=== PATIENT | male | born 1975 | race African-American/Black ===

== ENCOUNTER 2017-10-10 22:06 | Observation (INO) | payer SELFPAY ==
[~2017-10-10] VITALS: Ht 167.6 cm; Wt 100.0 kg
[~2017-10-10 22:06] MED LIST: AMLO5 PO
[2017-10-10 22:09] VITALS: BP 165/105; PULSE 75; RESP 16; TEMP 98.7; O2SAT 98
[2017-10-10 22:35] VITALS: O2SAT 100
[2017-10-10 22:43] LABS: AUTOMATED NEUTROPHIL # 2.7 TH/MM3 (1.8-7.7); BASOPHIL % 0.7 % (0.0-2.0); EOSINOPHIL % 0.7 % (0.0-4.0); HEMATOCRIT 39.5 % (39.0-51.0); HEMO FLAGS DIFF FINAL; LYMPH % 43.9 % (9.0-44.0); LYMPHOCYTE # 2.6 TH/MM3 (1.0-4.8); MEAN CELL VOLUME 85.2 FL (80.0-100.0); MEAN CORPUSCULAR HEMOGLOBIN 29.6 PG (27.0-34.0); MEAN CORPUSCULAR HGB CONC 34.8 % (32.0-36.0); MONO % 7.8 % (0.0-8.0); NEUT % 46.9 % (16.0-70.0); PLATELET COUNT 180 TH/MM3 (150-450); RED BLOOD COUNT 4.64 MIL/MM3 (4.50-5.90); RED CELL DISTRIBUTION WIDTH 12.6 % (11.6-17.2); WHITE BLOOD COUNT 5.8 TH/MM3 (4.0-11.0)
[2017-10-10 22:45] VITALS: BP 178/90
--- NOTE | 2017-10-10 22:56 | RADRPT ---
EXAM DATE/TIME: 10/10/2017 22:52 [facility] COMPARISON: CHEST SINGLE AP, May 23, 2016, 13:40. INDICATIONS : Left sided chest pain. MEDICAL HISTORY : None. SURGICAL HISTORY : None. ENCOUNTER: Initial ACUITY: 4 - 6 days PAIN SCORE: 8/10 LOCATION: Left chest FINDINGS: A single view of the chest demonstrates the lungs to be symmetrically aerated without evidence of mas s, infiltrate or effusion. No evidence of pneumothorax. The cardiomediastinal contours are unremark able. Osseous structures are intact. CONCLUSION: The lungs are clear. Galindo Wyatt MD on October 10, 2017 at 22:54 Board Certified Radiologist. This report was verified electronically.
[2017-10-10 23:22] LABS: ANION GAP 6 MEQ/L (5-15); BICARBONATE 26.9 MEQ/L (21.0-32.0); BLOOD UREA NITROGEN 13 MG/DL (7-18); CHLORIDE 105 MEQ/L (98-107); CREATINE KINASE 1155 U/L (39-308); GLOMERULAR FILTRATION RATE 75 ML/MIN (>89); SODIUM (NA) 138 MEQ/L (136-145)
[2017-10-10 23:23] LABS: POTASSIUM 3.9 MEQ/L (3.5-5.1)
[2017-10-10 23:35] LABS: CKMB 3.5 NG/ML (0.5-3.6)
[2017-10-10] MEDS ORDERED: SODIUM CHLOR 0.9% 1000 ML INJ 1,000 ML IV ONE (23:45)
--- NOTE | 2017-10-10 23:50 | PD ---
HPI Chief Complaint: Chest Pain Time Seen by Provider: 22:45 Travel History International Travel<30 days: No Contact w/Intl Traveler<30days: No Traveled to known affect area: No History of Present Illness HPI This is a 41-year-old male with no past medical history, presents today with complaints of intermittent chest pain times several days. Patient reports he has pain in his left shoulder and left upper chest that radiates to his left arm. He reports the sharp and intermittent. He also reports some pressure- like sensation. There is no nausea or diaphoresis. Patient had elevated blood pressure when he arrived. The patient has no history of blood pressure although he doesn't a family history of blood pressure issues. There are no other complaints time my examination. PFSH Past Medical History Medical History: Denies Significant Hx Heart Rhythm Problems: No Cardiac Catheterization: No Cardiovascular Problems: No High Cholesterol: No Congestive Heart Failure: No Diabetes: No Heparin Induced Thrombocytopen: No Hypertension: No Past Surgical History Surgical History: No Previous Surgery Coronary Artery Bypass Graft: No Family History Family Myocardial Infarction: Yes (father) Social History Alcohol Use: Yes Tobacco Use: No Substance Use: No Allergies-Medications (Allergen,Severity, Reaction): Coded Allergies: No Known Allergies (Verified Adverse Reaction, Unknown, 10/10/17) Reported Meds & Prescriptions Reported Meds & Active Scripts Active No Active Prescriptions or Reported Medications Review of Systems Except as stated in HPI: all other systems reviewed are Neg General / Constitutional: No: Fever, Chills HENT: No: Neck Stiffness, Neck Pain Cardiovascular: Positive: Chest Pain or Discomfort, No: Palpitations, Irregular Rhythm Respiratory: No: Cough, Shortness of Breath Gastrointestinal: No: Nausea, Vomiting, Abdominal Pain Genitourinary: No: Frequency, Dysuria Musculoskeletal: Positive: Pain (sharp pain intermittently to the left arm.), No: Weakness Neurologic: No: Weakness, Dizziness, Headache Physical Exam Narrative GENERAL: Well-nourished, well-developed patient in no acute respiratory distress. SKIN: Focused skin assessment warm/dry. HEAD: Normocephalic/atraumatic. EYES: No scleral icterus. No injection or drainage. NECK: Supple, trachea midline. No JVD or lymphadenopathy. CARDIOVASCULAR: Regular rate and rhythm without murmurs, gallops, or rubs. RESPIRATORY: Breath sounds equal bilaterally. No accessory muscle use. GASTROINTESTINAL: Abdomen soft, non-tender, nondistended. MUSCULOSKELETAL: No cyanosis, or edema. BACK: Nontender without obvious deformity. No CVA tenderness. NEUROLOGICAL: Awake and alert. Cranial nerves II through XII intact. Motor grossly within normal limits. Five out of 5 muscle strength in all muscle groups. Normal speech. Data Data Last Documented VS Vital Signs Date Time Temp Pulse Resp B/P (MAP) Pulse Ox O2 Delivery O2 Flow Rate FiO2 10/11/17 00:37 76 18 149/88 (108) 100 10/10/17 22:35 Nasal Cannula 2.00 10/10/17 22:09 98.7 Orders Orders Electrocardiogram (10/10/17 22:33) Complete Blood Count With Diff (10/10/17 22:33) Basic Metabolic Panel (Bmp) (10/10/17 22:33) Ckmb (Isoenzyme) Profile (10/10/17 22:33) Troponin I (10/10/17 22:33) Chest, Single Ap (10/10/17 22:33) Iv Access Insert/Monitor (10/10/17 22:33) Ecg Monitoring (10/10/17 22:33) Oxygen Administration (10/10/17 22:33) Oximetry (10/10/17 22:33) CKMB (10/10/17 22:36) CKMB% (10/10/17 22:36) Sodium Chlor 0.9% 1000 Ml Inj (Ns 1000 M (10/10/17 23:45) Aspirin Chew (Aspirin Chew) (10/11/17 00:00) Nitroglycerin 2% Oint (Nitroglycerin 2% (10/11/17 00:00) Activity Bed Rest With Brp (10/11/17 00:34) Vital Signs (Adult) Q4H (10/11/17 00:34) Cardiac Rhythm .As Directed (10/11/17 00:34) Notify Dr: Other .PRN (10/11/17 00:34) Notify Parameters (10/11/17 00:34) Resp Oxygen Nasal Cannula (10/11/17 ) Diet Npo (10/11/17 Breakfast) Ckmb (Isoenzyme) Profile (10/11/17 01:30) Ckmb (Isoenzyme) Profile (10/11/17 04:30) Troponin I (10/11/17 01:30) Troponin I (10/11/17 04:30) Electrocardiogram (10/11/17 01:30) Electrocardiogram (10/11/17 04:30) ^ Obtain (10/11/17 00:34) Sodium Chloride 0.9% Flush (Ns Flush) (10/11/17 00:45) Sodium Chloride 0.9% Flush (Ns Flush) (10/11/17 09:00) Film Composer / Telemetry [id number] (10/11/17 00:34) Admit Order (Ed Use Only) (10/11/17 00:34) Sodium Chlor 0.9% 1000 Ml Inj (Ns 1000 M (10/11/17 00:45) Amlodipine (Norvasc) (10/11/17 00:45) Labs Laboratory Tests Test 10/10/17 22:36 White Blood Count 5.8 TH/MM3 Red Blood Count 4.64 MIL/MM3 Hemoglobin 13.8 GM/DL Hematocrit 39.5 % Mean Corpuscular Volume 85.2 FL Mean Corpuscular Hemoglobin 29.6 PG Mean Corpuscular Hemoglobin Concent 34.8 % Red Cell Distribution Width 12.6 % Platelet Count 180 TH/MM3 Mean Platelet Volume 8.6 FL Neutrophils (%) (Auto) 46.9 % Lymphocytes (%) (Auto) 43.9 % Monocytes (%) (Auto) 7.8 % Eosinophils (%) (Auto) 0.7 % Basophils (%) (Auto) 0.7 % Neutrophils # (Auto) 2.7 TH/MM3 Lymphocytes # (Auto) 2.6 TH/MM3 Monocytes # (Auto) 0.5 TH/MM3 Eosinophils # (Auto) 0.0 TH/MM3 Basophils # (Auto) 0.0 TH/MM3 CBC Comment DIFF FINAL Differential Comment Blood Urea Nitrogen 13 MG/DL Creatinine 1.27 MG/DL Random Glucose 129 MG/DL Calcium Level 8.4 MG/DL Sodium Level 138 MEQ/L Potassium Level 3.9 MEQ/L Chloride Level 105 MEQ/L Carbon Dioxide Level 26.9 MEQ/L Anion Gap 6 MEQ/L Estimat Glomerular Filtration Rate 75 ML/MIN Total Creatine Kinase 1155 U/L Creatine Kinase MB 3.5 NG/ML Creatine Kinase MB % 0.3 % Troponin I LESS THAN 0.02 NG/ML MDM Medical Decision Making Medical Screen Exam Complete: Yes Emergency Medical Condition: Yes Differential Diagnosis ACS versus osseous skeletal pain versus pleurisy Narrative Course 41-year-old male with no reported past microscopic history, presents here today with complaints of chest pain on and off. The patient has a EKG that shows no evidence of acute findings. Troponin was within normal limits. Total CK was elevated at 1100. The patient was given 1 L of IV bolus and started at 125 cc of normal saline per hour. He'll be admitted to the chest pain center for rule out protocol. He's had 1 inch of nitroglycerin paste placed on his anterior chest wall. He'll be ruled out. Looking through old records he was seen and evaluated and chest pain center 15 months ago. At that time they noted him to have elevated blood pressure. There were to start him on amlodipine. I started him on 5 mg of amlodipine and he was given his first dose here in the ED. Diagnosis Primary Impression: Chest pain Additional Impressions: Hypertension Elevated CPK Admitting Information Admitting Physician Requests: Observation Scripts No Active Prescriptions or Reported Meds Juanjose Goel MD Oct 10, 2017 23:50
[2017-10-11] VITALS (13 sets, daily range): BP systolic 116–166; BP diastolic 65–99; PULSE 67–100; RESP 14–18; TEMP 96.3–97.8; O2SAT 97–100
[2017-10-11] MEDS ORDERED: ASPIRIN 81 MG CHEW TAB CHEW ONE
[2017-10-11] MEDS ORDERED: NITROGLYCERIN 2% OINT 1 GM PACKET TOPICAL ONE
[2017-10-11] MEDS ORDERED: IOHEXOL 350 MG/ML 100 ML BTL (for Cath Lab) OTHER ONE (00:41)
[2017-10-11] MEDS ORDERED: SODIUM CHLORIDE 0.9% FLUSH 10 ML FLUSH IV FLUSH PRN (00:45)
[2017-10-11] MEDS ORDERED: amLODIPine BESYLATE 5 MG TAB PO ONE (00:45)
[2017-10-11] MEDS: SODIUM CHLOR 0.9% 1000 ML INJ 1,000 ML IV SCH ×3 (01:12→16:45)
[2017-10-11 03:26] LABS: CREATINE KINASE 826 U/L (39-308)
[2017-10-11 03:38] LABS: CKMB 2.8 NG/ML (0.5-3.6)
[2017-10-11 05:39] LABS: CREATINE KINASE 798 U/L (39-308)
[2017-10-11 05:51] LABS: CKMB 2.5 NG/ML (0.5-3.6)
[2017-10-11] MEDS ORDERED: ONDANSETRON HCL 4 MG/2 ML VIAL IV PUSH PRN (07:30)
[2017-10-11] MEDS ORDERED: NITROGLYCERIN 0.4 MG SL 25 TABS/BTL SL PRN (07:30)
[2017-10-11] MEDS ORDERED: ACETAMINOPHEN 500 MG CPLT PO PRN (07:30)
--- NOTE | 2017-10-11 08:13 | HHI.HP ---
HPI Primary Care Physician No Primary Care Physician Chief Complaint Chest pain History of Present Illness 41 year old male with no significant past medical history presents to the ER for further evaluation of chest pain. Onset while at work. Location left anterior chest. Characterized as sharp. Radiation to left arm. Duration constant, intermittently chest pain occurring more often than not. Associated symptoms of diaphoresis and dyspnea. Denies nausea. No recent illness, fever, or chills. No known precipitating factors, stating "maybe from my work, getting in and out of cars and the chemicals." He works detailing cars. No known relieving factors. Denies similar pain in the past. Review of Systems General: No fatigue,weakness, fever, chills, or recent illness change in appetite. Has been adjusted health. HEENT: No PICHARDO, no vision changes, no nasal congestion or drainage, no dysphasia CV: As stated above. Currently chest pain-free. No palpitations, intermittent leg pain, dizziness RESP: No SOB, cough, wheeze, hemoptysis, asthma GI: No nausea, vomiting, bowel changes, diarrhea, constipation, pain, distention , melena, blood in the stool. No change in appetite, no unintentional weight gain or weight loss. : No dysuria, urgency, frequency EXT: No lower leg edema, no paraesthesias MS: No discomfort, change in ROM, injury, or known trauma. NEURO: No dizziness, difficulty with balance, LOC, motor/sensory deficits PSYCH: No anxiety, depression SKIN: No rashes, no concerning lesions Past Family Social History Allergies: Coded Allergies: No Known Allergies (Verified Adverse Reaction, Unknown, 10/10/17) Past Medical History None Past Surgical History None Reported Medications Reported Meds & Active Scripts Active No Active Prescriptions or Reported Medications Active Ordered Medications Current Medications Medications (Trade) Dose Ordered Sig/Sukhwinder Route Start Time Stop Time Status Last Admin (NS Flush) 2 ml UNSCH PRN IV FLUSH 10/11/17 00:45 (NS Flush) 2 ml BID IV FLUSH 10/11/17 09:00 Sodium Chloride 1,000 ml @ 125 mls/hr Q8H IV 10/11/17 00:45 10/11/17 01:12 (Tylenol) 500 mg Q4H PRN PO 10/11/17 07:30 (Zofran Inj) 4 mg Q6H PRN IV PUSH 10/11/17 07:30 (Nitrostat Sl) 0.4 mg Q5M PRN SL 10/11/17 07:30 (Aspirin) 325 mg DAILY PO 10/11/17 09:00 Family History Father age 53 ID, endorses cardiac problems prior to as well. Social History Reports history of being told he has hypertension, placed on medication however endorses never following up with a PCP. No known diabetes or hyperlipidemia. Lifelong nonsmoker. Past cardiac testing 05/24/2016 Nuclear stress [id number], Global hypokineses. EF 40% Physical Exam Vital Signs Vital Signs Date Time Temp Pulse Resp B/P (MAP) Pulse Ox O2 Delivery O2 Flow Rate FiO2 10/11/17 07:23 97.4 67 18 121/65 (83) 97 10/11/17 04:39 97.7 74 17 132/82 (99) 97 10/11/17 03:45 75 10/11/17 02:02 67 16 141/85 (103) 98 10/11/17 00:54 98 10/11/17 00:37 76 18 149/88 (108) 100 10/10/17 22:45 178/90 (119) 10/10/17 22:35 100 Nasal Cannula 2.00 10/10/17 22:35 97 Room Air 10/10/17 22:09 98.7 75 16 165/105 (125) 98 Room Air Physical Exam GENERAL: Alert WN, WD, NAD, pleasant, obese male HEAD: NC, AT NECK: Supple, no masses, trachea midline CV: RRR, without murmur, rub, gallop, no JVD, S1-S2 no S3-S4. RESP: Clear lungs throughout bilateral, no crackles, wheeze, rhonchi, symmetrical chest rise, nonlabored, able to speak in full sentences ABD: Soft, NT, ND, no masses, positive bowel tones EXT: no dependent edema MS: Normal tone 4 extremities, nontender, no obvious deformities, full range of motion NEURO: CN II through CN XII grossly intact, motor strength 5/5, gait WNL PSYCH: A+O 3, flat affect, appropriate speech, insight and judgment SKIN: Normal turgor, normal texture, no lesions, no rashes, brisk cap refill, even hair distribution Laboratory Laboratory Tests Test 10/10/17 22:36 10/11/17 02:30 10/11/17 04:33 White Blood Count 5.8 Red Blood Count 4.64 Hemoglobin 13.8 Hematocrit 39.5 Mean Corpuscular Volume 85.2 Mean Corpuscular Hemoglobin 29.6 Mean Corpuscular Hemoglobin Concent 34.8 Red Cell Distribution Width 12.6 Platelet Count 180 Mean Platelet Volume 8.6 Neutrophils (%) (Auto) 46.9 Lymphocytes (%) (Auto) 43.9 Monocytes (%) (Auto) 7.8 Eosinophils (%) (Auto) 0.7 Basophils (%) (Auto) 0.7 Neutrophils # (Auto) 2.7 Lymphocytes # (Auto) 2.6 Monocytes # (Auto) 0.5 Eosinophils # (Auto) 0.0 Basophils # (Auto) 0.0 CBC Comment DIFF FINAL Differential Comment Blood Urea Nitrogen 13 Creatinine 1.27 Random Glucose 129 Calcium Level 8.4 Sodium Level 138 Potassium Level 3.9 Chloride Level 105 Carbon Dioxide Level 26.9 Anion Gap 6 Estimat Glomerular Filtration Rate 75 Total Creatine Kinase 1155 826 798 Creatine Kinase MB 3.5 2.8 2.5 Creatine Kinase MB % 0.3 0.3 0.3 Troponin I LESS THAN 0.02 LESS THAN 0.02 LESS THAN 0.02 Result Diagram: 10/10/17223510/10/172235 Imaging Last Impressions Chest X-Ray 10/10/172232 Signed Impressions: Service Date/Time: Tuesday, October 10, 2017 22:52 - CONCLUSION: The lungs are clear. Galindo Wyatt MD Course EKG Normal sinus rhythm, nonspecific T-wave changes Caprini VTE Risk Assessment Caprini VTE Risk Assessment: No/Low Risk (score <= 1) Caprini Risk Assessment Model Point Value = 1 Point Value = 2 Point Value = 3 Point Value = 5 Age 41-60 Minor surgery BMI > 25 kg/m2 Swollen legs Varicose veins or History of unexplained or recurrent spontaneous Oral contraceptives or hormone replacement Sepsis (< 1 month) Serious lung disease, including pneumonia (< 1 month) Abnormal pulmonary function Acute myocardial infarction Congestive heart failure (< 1 month) History of inflammatory bowel disease Medical patient at bed rest Age 61-74 Arthroscopic surgery Major open surgery (> 45 min) Laparoscopic surgery (> 45 min) Malignancy Confined to bed (> 72 hours) Immobilizing plaster cast Central venous access Age >= 75 History of VTE Family history of VTE Factor V Leiden Prothrombin [id number] Lupus anticoagulant Anticardiolipin antibodies Elevated serum homocysteine Heparin-induced thrombocytopenia Other congenital or acquired thrombophilia Stroke (< 1 month) Elective arthroplasty Hip, pelvis, or leg fracture Acute spinal cord injury (< 1 month) Prophylaxis Regimen Total Risk Factor Score Risk Level Prophylaxis Regimen 0-1 Low Early ambulation 2 Moderate Order ONE of the following: *Sequential Compression Device (SCD) *Heparin 5000 units SQ BID 3-4 Higher Order ONE of the following medications: *Heparin 5000 units SQ TID *Enoxaparin/Lovenox 40 mg SQ daily (WT < 150 kg, CrCl > 30 mL/min) *Enoxaparin/Lovenox 30 mg SQ daily (WT < 150 kg, CrCl > 10-29 mL/min) *Enoxaparin/Lovenox 30 mg SQ BID (WT < 150 kg, CrCl > 30 mL/min) AND/OR *Sequential Compression Device (SCD) 5 or more Highest Order ONE of the following medications: *Heparin 5000 units SQ TID (Preferred with Epidurals) *Enoxaparin/Lovenox 40 mg SQ daily (WT < 150 kg, CrCl > 30 mL/min) *Enoxaparin/Lovenox 30 mg SQ daily (WT < 150 kg, CrCl > 10-29 mL/min) *Enoxaparin/Lovenox 30 mg SQ BID (WT < 150 kg, CrCl > 30 mL/min) AND *Sequential Compression Device (SCD) Assessment and Plan Assessment and Plan #1 Atypical chest pain-admitted to chest pain center. Ruled out with 3 sets of EKGs, cardiac enzymes, and monitored over night. Seen and evaluated by Dr. Burgos. Proceed with exercise stress test. If unremarkable, plan discharge later this morning with follow-up with PCP. Patient agreeable plan of care. #2 Hypertension-amlodipine 5 mg daily, prescription will be provided at discharge. Strongly encouraged and stressed importance of establishing with a PCP, especially with known global hypokineses and decreased EF 40% identified on last years nuclear scan and family history of cardiovascular disease. Encouraged weight loss, increasing daily activity, and following a low sodium diet. Made aware of [facility] in [facility] that offers primary medical care for uninsured individuals and cost determined by income. Also made aware of local free clinic, [facility], he may qualify for. Verbalized understanding. amlodipine 10:00 Attempted exercise stress test. Patient unable to complete. Proceed with chemical stress testing. Mary Kay Guzman Oct 11, 2017 08:13
[2017-10-11] MEDS: SODIUM CHLORIDE 0.9% FLUSH 10 ML FLUSH IV FLUSH SCH ×2 (08:44→20:52)
[2017-10-11] MEDS: amLODIPine BESYLATE 5 MG TAB PO SCH (08:44)
[2017-10-11] MEDS: ASPIRIN 325 MG TAB PO SCH (08:44)
--- NOTE | 2017-10-11 09:40 | EKG ---
Date Performed: 10/11/2017 Time Performed: 02:21:18 PTAGE: 41 years EKG: Sinus rhythm NONSPECIFIC T-WAVE ABNORMALITY BORDERLINE ECG PREVIOUS TRACING : 10/10/2017 22.26 Since previous tracing,T wave inversion is now present DOCTOR: Hernan Burgos Interpretating Date/Time 10/11/2017 09:39:48
--- NOTE | 2017-10-11 09:44 | EKG ---
Date Performed: 10/10/2017 Time Performed: 22:26:25 PTAGE: 41 years EKG: Sinus rhythm NONSPECIFIC T-WAVE ABNORMALITY BORDERLINE ECG INTERPRETATION BASED ON A DEFAULT AGE OF 40 YEARS PREVIOUS TRACING : 05/23/2016 17.55 Since previous tracing, no significant change noted DOCTOR: Hernan Burgos Interpretating Date/Time 10/11/2017 09:42:29
--- NOTE | 2017-10-11 09:50 | EKG ---
Date Performed: 10/11/2017 Time Performed: 04:43:15 PTAGE: 41 years EKG: Sinus rhythm WITH SINUS ARRHYTHMIA NONSPECIFIC T-WAVE ABNORMALITY BORDERLINE ECG PREVIOUS TRACING : 10/11/2017 02.21 Since previous tracing, no significant change noted DOCTOR: Hernan Burgos Interpretating Date/Time 10/11/2017 09:49:15
[2017-10-11] MEDS ORDERED: ACETAMINOPHEN 500 MG CPLT PO ONE (10:15)
[2017-10-11] MEDS ORDERED: REGADENOSON INJ 0.4 MG/5 ML SYR ONE (13:21)
--- NOTE | 2017-10-11 14:59 | RADRPT ---
EXAM DATE/TIME: 10/11/2017 13:00 [facility] COMPARISON: No previous studies available for comparison. INDICATIONS : Left sided chest pain. Angina. DOSE: 25.9 mCi Tc99m Myoview at stress. 8.1 mCi Tc99m Myoview at rest. 0.4 mg Lexiscan STRESS SYMPTOMS: Headache. EJECTION FRACTION: 49% MEDICAL HISTORY : None SURGICAL HISTORY : None. ENCOUNTER: Initial ACUITY: 1 day PAIN SCALE: 2/10 LOCATION: Left chest TECHNIQUE: The patient underwent pharmacologic stress with infusion of prescribed dose. Continuous ECG tracing was monitored during stress. Gated SPECT imaging was performed after stress and conventional SPECT i maging was performed at rest. The examination was performed on a SPECT/CT scanner, both attenuation and non-corrected datasets were reviewed. FINDINGS: DISTRIBUTION: The maximum perfused segment at stress is in the lateral wall. PERFUSION STUDY: Focal stress-induced perfusion defect in the anterior apical wall. GATED STUDY: Diffuse mild hypokinesia without focal wall motion abnormality. CONCLUSION: 1. Focal reversible perfusion defect in the anterior apical wall. 2. Mild diffuse hypokinesia without focal wall motion abnormality. Reduced EF of 49%. RISK CATEGORY: Intermediate (1-3% Annual Mortality Rate) Roel Bowling MD on October 11, 2017 at 14:52 Board Certified Radiologist. This report was verified electronically.
[2017-10-11] MEDS ORDERED: AMLO5TAB2 PO (15:17)
[2017-10-11] MEDS ORDERED: KETOROLAC TROMETHAMINE 30 MG/ML (IVP) VIAL IV PUSH ONE (17:15)
[2017-10-11] MEDS ORDERED: MIDAZOLAM HCL 5 MG/5 ML VIAL ONE (17:52)
[2017-10-11] MEDS ORDERED: HEPARIN-NS/PF INJ 1,000 ML ONE (17:52)
[2017-10-11] MEDS ORDERED: SODIUM CHLOR 0.9% 1000 ML INJ 500 ML IV SCH (18:52)
--- NOTE | 2017-10-11 19:17 | CATHPROC ---
AddIn Social HIS Report Study Information Study Number Admission Scheduled Start Study Start [id number] Oct 11 2017 12:40AM 10/11/2017 Oct 11 2017 5:48PM [place] Service Cardiac Catheterization Admit Source Facility Department Emergency department [facility] - Pr Manager Physician and Clinical Staff Initial Jalen Goodson Silk Screen Frame Assembler Maritza Chen,RN Silk Screen Frame Assembler Elaine Chavez BSRRosendo Recorder Valorie Colon,RT(R) Scrub Martínez, Zeina,MICROCOMPUTER SUPPORT SPECIALIST TECH2 Procedures Performed Procedure Location (Site) Vessel Name Angiogram LV LV Ventricle Coronary Angiograms LCA Left Coronary Coronary Angiograms RCA Right Coronary L Heart Cath Equipment Time Chief Dispatcher Description Size Mfg Part Number Used/Scraped TRANSDUCER, TRConjuGonAVE [id number] 17:51 Vastrm SIN * Used W/STOCKCOCK *[id number] *[id number] [id number] *[id number] 17:51 MEDLINE INDUSTRIES PACK, CCL CUSTOM * Used *[id number] 17:51 US Biologic PACER PEN, SKIN DUAL W/ RULER * Used *[id number] 18:19 MEDTRONIC JL 4.0 DXTERITY CATHETER FR 5 Used *[id number] 17:51 PeopleJar WIRE, 3MMJ .035 180CM 180CM Used *[id number] PROBE COVER, STERILE [id number] 17:51 iOTOS, Inc * Used ULTRASOUND W/ GEL *[id number] 17:51 NAMIC MANIFOLD, 4 PORT * Used *[id number] 17:51 NAMIC TUBING, HIGH PRESSURE 48" 48" Used *[id number] 17:51 NYCOMED OMNIPAQUE, 350 MG, 150ML 150ML [id number] Used [id number] 17:51 ECHAVARRIA MEDICAL BLANKET,WARM AIR CCL * Used *[id number] 17:51 TERUMO MEDICAL SHEATH, FR5 TERUMO (10CM) FR 5 Used *[id number] Equipment Model, Serial, Lot Number and Expiration Data Description Model Number Serial Number Lot Number Expiration Date JL 4.0 DXTERITY CATHETER [id number] 05-10-2020 History: Current Medications Medication Dosage/Unit Route Frequency Last Date/Time Taken ASA History: Allergies Allergy Reaction No Known Allergies History: Risk Factors Family History of Hypertension Dyslipidemia Previous MN Previous Heart Failure Premature CAD Yes No Yes No No Prior Valve Prior PCI Prior CABG Surgery No No No Cerebrovascular Peripheral Artery Chronic Lung On Dialysis Diabetes Disease Disease Disease No No No No No History: Symptoms/Diagnosis Selection Items Chest pain SOB History: Stress Tests Stress or Imaging Studies Performed Yes Standard Exercise Stress Test No Stress Echo No Stress Test SPECT Stress Test SPECT Result Stress Test SPECT Ischemia Risk/Extent Yes Positive Intermediate Stress Test CMR No Cardiac CTA Coronary Calcium Score No No History: Other Current Smoker No Labs Hgb (g/dl) Hct (%) WBC (l/cumm) Platelets (thousands) 11.60-17.00 35.00-51.00 4.00-11.00 150.00-450.00 13.8 39.5 4.6 180 Glucose (mg/dl) BUN (mg/dl) Creatinine (mg/dl) BUN:Creatinine (1:x) 74.00-106.00 7.00-18.00 0.50-1.30 10.00-20.00 129 13 1.2 10.8 Na (meq/l) K (meq/l) 136.00-145.00 3.50-5.10 138 3.9 Troponin I (ng/ml) CPK-MB (ng/ML) 0.02-0.05 0.50-3.60 0.02 2.5 Medication Medication Total Dose (Bolus/Oral) Medication Total Dosage/Unit 1% XYLOCAINE 20 mL FENTANYL 100 mcg VERSED 6 mg Medications (Bolus/Oral) Medication Time Given Dosage/Unit Administered By Reason VERSED 10/11/2017 6:22:00 PM 2 mg Hesher, Maritza 2 mg VERSED given in lab by Maritza Chen RN in Left Antecubital via Peripheral IV. Ordered by Jalen Buckner. FENTANYL 10/11/2017 6:23:17 PM 50 mcg Hesher, Maritza 50 mcg FENTANYL given in lab by Maritza Chen RN in Left Antecubital via Peripheral IV. Ordered by Jalen Dewey. VERSED 10/11/2017 6:28:28 PM 2 mg Hesher, Maritza 2 mg VERSED given in lab by Maritza Chen RN in Left Antecubital via Peripheral IV. Ordered by Jalen Buckner. FENTANYL 10/11/2017 6:29:21 PM 50 mcg Hesher, Maritza 50 mcg FENTANYL given in lab by Maritza Chen RN in Left Antecubital via Peripheral IV. Ordered by Jalen Dewey. 1% XYLOCAINE 10/11/2017 6:32:27 PM 20 mL Jalen Dewey 20 mL 1% XYLOCAINE given in lab by Jalen Dewey in Right Groin via Subcutaneous. VERSED 10/11/2017 6:34:00 PM 2 mg Maritza Chen 2 mg VERSED given in lab by Maritza Chen RN in Left Antecubital via Peripheral IV. Ordered by Jalen Buckner. Medication (Drip) Medication Time Given Dosage/Unit Concentration/Unit Diluent (ml) Solution IV Solutions 10/11/2017 6:10:12 PM 50 mL (IV) NaCl .9 IV Solutions given in lab by Maritza Chen RN in Left Antecubital via Peripheral IV. Pump/Drip Flow using NaCl .9. Initial Case Assessment Cardiovascular HR Rhythm NIBP 68 SR 148/91 Edema Present Skin color Skin None Normal Warm Dry Circulatory - Right Pulses Dorsalis Pedis Femoral 2 2 Scale (0,1,2,3,4,d) Circulatory - Left Pulses Dorsalis Pedis Femoral 2 2 Scale (0,1,2,3,4,d) Neurological State Oriented to time-place- Alert Moves all extremities person Respiration - General Respiration Rate SpO2 (%) (B/min) 11 98 Chronological Log Time Study Chronological Log 18:07:00 Patient arrived via Bed. 18:09:43 Patient Name, D.O.B, / Armband Verified By R.N. 18:09:44 Consent signed by the physician and the patient and verified by the Pr Manager staff. 18:09:45 Pre-op and post- op instructions given; patient acknowledges understanding of instructions. 18:09:46 Verbal Stimulation=2 Physical Stimulation=2 Airway=2 Respiration=2 TOTAL=8. (0=absent, 1=li mited, 2=present) 18:10:03 Presedation assessment performed by Pr Manager RN. 18:10:06 Patient has been NPO for More than 6Hrs. 18:10:08 Skin Breakdown- none per pt 18:10:08 Patient Warmer Placed on the Table. 18:10:09 Renae Prominences Protected 18:10:11 A # 20 IV was noted in the Antecubital (left). Grade = 0 18:10:12 IV Solutions given in lab by Maritza Chen RN in Left Antecubital via Peripheral IV. Pump /Drip Flow using NaCl .9. 18:10:14 History and physical on the chart or being dictated. Assessment: Initial Case, HR=68 BPM, Rhythm=SR, NSED=605/91 mmhg, Edema=None, Color=Normal, Ski n = Warm, Dry Right Pulses: Ronald Ped=2, Femoral=2 18:10:15 Left Pulses: Ronald Ped=2, Femoral=2 Neurological: State=Alert, Ox3, CASTRO Respiration: Resp=11 B/min, SpO2=98 % Vitals capture started with the following parameters, Patient=Adult, Interval=5 min, Initial Pr ywqmpo=159 mmHg, 18:15:00 Deflation Rate=5 mmHg, Cuff placed on Left Arm 18:15:38 HR=68 bpm, JELH=275/91 mmhg, SpO2=98.0 %, Resp=11 B/min 18:17:34 Reference ECG taken 18:20:37 HR=65 bpm, QTKR=382/99 mmhg, ZnO6=331.0 %, Resp=15 B/min 18:22:00 2 mg VERSED given in lab by Maritza Chen RN in Left Antecubital via Peripheral IV. Order ed by Jalen Dewey. 18:22:16 Bilateral groins prepped with 2% chlorhexidine, and draped after a 3 minute waiting time. 18:22:29 MD paged 18:22:43 Pressure channel 1 zeroed. 18:23:17 50 mcg FENTANYL given in lab by Maritza Chen RN in Left Antecubital via Peripheral IV. O rdered by Jalen Dewey. 18:25:19 MD responded 18:25:38 HR=77 bpm, DEFL=763/90 mmhg, SpO2=99.0 %, Resp=10 B/min 18:26:37 MD arrived. 18:28:28 2 mg VERSED given in lab by Maritza Chen RN in Left Antecubital via Peripheral IV. Order ed by Jalen Dewey. 18:29:21 50 mcg FENTANYL given in lab by Maritza Chen RN in Left Antecubital via Peripheral IV. O rdered by Jalen Dewey. 18:30:37 HR=78 bpm, OAKP=137/87 mmhg, SpO2=96.0 %, Resp=13 B/min Time Out. Correct patient, correct procedure, correct physician, power injector loaded, or not loaded with contrast with 18:32:04 surgical team present. Time Out Concurred by MD and individual staff in procedure. 18:32:20 Case Start 18:32:27 20 mL 1% XYLOCAINE given in lab by Jalen Dewey in Right Groin via Subcutaneous. 18:34:00 2 mg VERSED given in lab by Maritza Chen, SIVAKUMAR in Left Antecubital via Peripheral IV. Order ed by Jalen Dewey. 18:34:44 Access site was Right Femoral Artery via ultrasound. 18:34:59 A SHEATH, FR5 TERUMO (10CM) FR 5 was advanced into the Fem Art (right) using the Percutaneo us technique. 18:35:36 HR=84 bpm, QKAD=190/93 mmhg, FqD4=523.0 %, Resp=13 B/min A PIGTAIL ANG. INFINITI CATHETER FR 5 was advanced over a wire. OMNIPAQUE, 350 MG, 150ML 150ML was used 18:36:04 for injections. Recorded Pressure: LV, HR=93, Condition=Condition 1 18:36:45 (Left Ventricle) LV 147/9/11 18:37:12 The LV was injected at 10 cc/sec for a total of 30. OMNIPAQUE, 350 MG, 150ML 150ML used. Recorded Pressure: LV, Ao, HR=98, Condition=Condition 1 18:38:19 (Left Ventricle) LV 117/14/17, (Aorta) Ao 167/113/138 18:39:11 Catheter was removed A JL 4.0 DXTERITY CATHETER FR 5 was advanced over a wire. OMNIPAQUE, 350 MG, 150ML 150ML was us ed for 18:39:15 injections. 18:40:11 The LCA was injected and visualized at various angles. OMNIPAQUE, 350 MG, 150ML 150ML used . 18:40:37 HR=83 bpm, XHZW=564/100 mmhg, PtO5=652.0 %, Resp=9 B/min 18:41:52 Catheter was removed A AR MOD INFINITI CATHETER FR 5 was advanced over a wire. OMNIPAQUE, 350 MG, 150ML 150ML was us ed for 18:42:00 injections. 18:42:52 The RCA was injected and visualized at various angles. OMNIPAQUE, 350 MG, 150ML 150ML used . 18:44:43 Catheter was removed 18:44:53 Case End 18:45:38 HR=91 bpm, FPBK=426/98 mmhg, EtD9=666.0 %, Resp=10 B/min 18:46:20 An injection in the Fem Art (right) was made through the SHEATH, FR5 TERUMO (10CM) FR 5. 18:48:06 Sheath removed; pressure applied to access site. 18:50:39 HR=93 bpm, EKNO=991/92 mmhg, EoE8=185.0 %, Resp=12 B/min 18:55:36 HR=83 bpm, JMYP=015/87 mmhg, MpL5=717.0 %, Resp=14 B/min 19:00:25 Sterile dressing applied to site 19:00:26 No case complications noted. 19:00:28 Cine recording checked. 19:00:32 Bedside Report will be given. 19:00:37 Contrast Scanned 19:00:38 A Left Heart Cath was performed. 19:00:39 HR=81 bpm, RGFI=510/90 mmhg, BiV8=051.0 %, Resp=12 B/min 19:05:38 HR=82 bpm, YGYD=386/103 mmhg, FqW1=571.0 %, Resp=14 B/min 19:10:35 Vitals capture stopped. 19:15:39 [facility] Study - Contrast Media Used In Study Contrast Total Opened (mL) Total Used (mL) Total Wasted (mL) Omnipaque 80 80 0 End Study - Maximum Contrast Load Max Contrast Load (mL) 416.7 End Study - Radiation Exposure Fluoro Time (minutes) 2.3 End Study - Sheaths Sheaths Pulled By Sheath Hold Time (min) Zeina Soliz 20 End Study - Patient Disposition Complications Transferred To Interventional Outcome No Telemetry Bed No attempt made
[2017-10-11 21:07] LABS: HDL CHOLESTEROL 52.3 MG/DL (40.0-60.0)
--- NOTE | 2017-10-11 22:09 | MB ---
cc: DAVID BURNHAM DATE OF CONSULTATION 10/11/2017 HISTORY A 41-year-old black male with no previous cardiac history developed sharp substernal chest discomfort radiating to the left arm while he was at work. The pain was intermittent associated with diaphoresis and shortness of breath. He underwent myocardial perfusion study which was intermediate risk with significant amount of ischemia. PAST MEDICAL HISTORY Negative for hypertension, dyslipidemia, diabetes mellitus, coronary artery disease or cerebrovascular accident. ALLERGIES None. SOCIAL HISTORY The patient does not smoke. He drinks alcohol infrequently. FAMILY HISTORY Positive for heart disease in his father who at age of 53 with myocardial function. REVIEW OF SYSTEMS Otherwise negative. PHYSICAL EXAMINATION VITAL SIGNS: Blood pressure 156/94, pulse 62 and regular. HEENT: Negative. 2+ carotid upstrokes. No bruits. LUNGS: Clear. HEART: Regular with no murmur, gallop or rub. ABDOMEN: Soft. No bruits. EXTREMITIES: Without edema. 2+ distal pulses. NEUROLOGIC: Exam is grossly nonfocal. EKG was reviewed and showed normal sinus rhythm, normal axis and intervals and nonspecific T-wave changes. LABORATORY DATA Hemoglobin 13.8, potassium 3.9, creatinine 1.27. CK 1155, 826, 798. Troponin less than 0.02. Myocardial perfusion study showed anterior reversible defect consistent with ischemia. DIAGNOSIS 1. Unstable angina. 2. Intermediate probability myocardial perfusion study. DISPOSITION Mr. Galvez will undergo cardiac catheterization and coronary intervention if necessary. The patient understands the risks and benefits, and wishes to proceed. MD GABI Post/KK /5:37 PM /9:52 PM JOANA
[2017-10-12] VITALS (11 sets, daily range): BP systolic 144–156; BP diastolic 69–96; PULSE 65–90; RESP 14–16; TEMP 97.7–98; O2SAT 98–100
[2017-10-12] MEDS: amLODIPine BESYLATE 5 MG TAB PO SCH (10:14)
[2017-10-12] MEDS: ASPIRIN 325 MG TAB PO SCH (10:15)
[2017-10-12] MEDS: SODIUM CHLORIDE 0.9% FLUSH 10 ML FLUSH IV FLUSH SCH (10:15)
--- NOTE | 2017-10-12 10:36 | PD.CARD.PN ---
Subjective Subjective Remarks No CP or SOB, feels fine, cath yest nl Objective Medications Current Medications Medications (Trade) Dose Ordered Sig/Sukhwinder Route Start Time Stop Time Status Last Admin (NS Flush) 2 ml UNSCH PRN IV FLUSH 10/11/17 00:45 (NS Flush) 2 ml BID IV FLUSH 10/11/17 09:00 10/12/17 10:15 Sodium Chloride 1,000 ml @ 125 mls/hr Q8H IV 10/11/17 00:45 10/11/17 01:12 (Tylenol) 500 mg Q4H PRN PO 10/11/17 07:30 10/12/17 04:25 (Zofran Inj) 4 mg Q6H PRN IV PUSH 10/11/17 07:30 (Nitrostat Sl) 0.4 mg Q5M PRN SL 10/11/17 07:30 (Aspirin) 325 mg DAILY PO 10/11/17 09:00 10/12/17 10:15 (Norvasc) 5 mg DAILY PO 10/11/17 09:00 10/12/17 10:14 Vital Signs / I&O Vital Signs Date Time Temp Pulse Resp B/P (MAP) Pulse Ox O2 Delivery O2 Flow Rate FiO2 10/12/17 08:00 98.0 67 16 145/89 (107) 100 10/12/17 06:00 90 10/12/17 05:00 82 10/12/17 04:00 72 10/12/17 04:00 97.7 73 14 144/92 (109) 98 10/12/17 03:00 74 10/12/17 02:00 76 10/12/17 01:00 90 10/12/17 00:30 156/96 (116) 10/12/17 00:03 21 10/12/17 00:00 97.7 73 14 151/69 (96) 98 10/12/17 00:00 78 10/11/17 23:30 149/95 (113) 10/11/17 23:00 130/91 (104) 10/11/17 23:00 100 10/11/17 22:30 145/92 (109) 10/11/17 22:00 74 10/11/17 22:00 140/66 (90) 10/11/17 21:00 78 10/11/17 21:00 97.8 82 14 146/99 (115) 98 10/11/17 17:04 96.3 67 15 166/94 (118) 98 10/11/17 11:17 97.5 70 18 116/71 (86) 98 I/O 10/11/17 10/11/17 10/11/17 10/12/17 10/12/17 10/12/17 06:59 14:59 22:59 06:59 14:59 22:59 Intake Total 1000 ml Output Total 200 ml 400 ml Balance 1000 ml -200 ml -400 ml Intake IV Total 1000 ml Output Urine Total 200 ml 400 ml # Voids 1 Physical Exam GENERAL: In NAD SKIN: Warm and dry. HEAD: Normocephalic. EYES: No scleral icterus. No injection or drainage. NECK: Supple, trachea midline. No JVD or lymphadenopathy. CARDIOVASCULAR: Regular rate and rhythm without murmurs, gallops, or rubs. RESPIRATORY: Breath sounds equal bilaterally. No accessory muscle use. GASTROINTESTINAL: Abdomen soft, non-tender, nondistended. MUSCULOSKELETAL: No cyanosis, or edema. Groin stable. Assessment and Plan Problem List: (1) Chest pain ICD Codes: R07.9 - Chest pain, unspecified Status: Acute (2) Abnormal nuclear cardiac imaging test ICD Codes: R93.1 - Abnormal findings on diagnostic imaging of heart and coronary circulation (3) Hypertension ICD Codes: I10 - Essential (primary) hypertension Status: Acute Assessment and Plan Remains stable. No CP or SOB. Cath with patent cors and nl LV function. Pt reassured. DC home. Jalen Dewey MD Oct 12, 2017 10:36
--- NOTE | 2017-10-12 10:54 | HHI.DCPOC ---
Discharge Care Plan Diagnosis: (1) Chest pain (2) Hypertension (3) Abnormal nuclear cardiac imaging test (4) Elevated CPK Goals to Promote Your Health * To prevent worsening of your condition and complications * To maintain your health at the optimal level Directions to Meet Your Goals Take your medications as prescribed Follow your dietary instruction Follow activity as directed Keep your appointments as scheduled Take your immunizations and boosters as scheduled If your symptoms worsen call your PCP, if no PCP go to Urgent Care Center or Emergency Room Smoking is Dangerous to Your Health. Avoid second hand smoke Call the 24-hour hour crisis hotline for domestic abuse at Kip Carrion MD Oct 12, 2017 10:54
--- NOTE | 2017-10-12 13:04 | TR ---
Date Performed: 10/11/2017 Time Performed: 13:20:14 DOCTOR: Daniel Baron DRUG LIST: CLINICAL HISTORY: CHEST PAIN REASON FOR TEST: CHEST PAIN REASON FOR ENDING: OBSERVATION: CONCLUSION: Lexiscan stress test was performed under standard four minute protocol. Radionuclid e was injected one minute prior to ending the test. No electrocardiographic abormalities were present to suggest ischemia. Nuclear imaging and interpretation are pending. COMMENTS:
--- NOTE | 2017-10-12 13:16 | TR ---
Date Performed: 10/11/2017 Time Performed: 09:48:24 DOCTOR: Daniel Baron DRUG LIST: CLINICAL HISTORY: REASON FOR TEST: REASON FOR ENDING: OBSERVATION: CONCLUSION: Chuck protocol completed. Stopped sec to leg fatigue and headache, patient requested to stop exam. Maximum FJ=102 Target Target HR Achieved=80.0% Maximum AC=751/98 Total Exercise Time=6 :34. No reprod chest pain. No ectopy. T wave inversion unchanged throughout exam. Normal bp response . Good exercise tolerance. Recovery quick and unremarkable. COMMENTS: Conclusion: Normal treadmill exercise. No evidence of ischemia. test is submaximal.
--- NOTE | 2017-10-13 18:54 | MR ---
cc: DAVID BURNHAM MD DATE 10/13/17 INDICATION Unstable angina, intermediate risk nuclear myocardial perfusion study. PROCEDURE PERFORMED 1. Retrograde left heart catheterization with left ventriculography and selective coronary angiography 2. Moderate sedation ACCESS SITE Right femoral artery. EQUIPMENT USED 5-Swiss pigtail catheter, 5-Swiss JL-4 and AR modified coronary artery catheters. MEDICATIONS Versed IV. Fentanyl IV CONTRAST Omnipaque 80 mL. COMPLICATIONS None BLOOD LOSS Less than 10 ml. METHOD OF HEMOSTASIS Manual compression. RESULTS OF HEMODYNAMICS Heart rate 90 beats per minute, left ventricular end-diastolic pressure of 14 mmHg. Left ventricle 120/14, aorta 120/95/70. Left ventricular ejection fraction 55%, wall motion normal. No mitral regurgitation seen. CORONARY ANGIOGRAPHY Left main coronary artery patent. Left anterior descending artery patent. D1 large, patent. Left circumflex artery patent. OM1 patent. OM2 patent. Right coronary artery is a dominant vessel which is patent. PDA patent, PLV patent. DIAGNOSES 1. Widely patent coronary arteries. 2. Well preserved left ventricular systolic function. DISPOSITION Mr. Galvez has been reassured about his cardiac status. His study revealed widely patent coronary arteries and preserved left ventricular systolic function. His nuclear myocardial perfusion study was falsely abnormal. He can be discharged home and will follow up with his primary physician. MD GABI Post/ /6:49 PM /6:23 PM JOANA
--- NOTE | 2017-10-17 09:45 | HHI.DS ---
Discharge Summary Admission Date Oct 11, 2017 at 00:40 Discharge Date: Oct 12, 2017 Admitting Diagnosis Chest pain, elevated CPK, hypertension Imaging Last Impressions Myocardial Perfusion Scan Nuc Med 10/11/17 0000 Signed Impressions: Service Date/Time: Wednesday, October 11, 2017 13:00 - CONCLUSION: 1. Focal reversible perfusion defect in the anterior apical wall. 2. Mild diffuse hypokinesia without focal wall motion abnormality. Reduced EF of 49%%. RISK CATEGORY: Intermediate (1-3%% Annual Mortality Rate) Roel Bowling MD Chest X-Ray 10/10/17 2233 Signed Impressions: Service Date/Time: Tuesday, October 10, 2017 22:52 - CONCLUSION: The lungs are clear. Galindo Wyatt MD Pt Condition on Discharge: Stable Discharge Disposition: Discharge Home Discharge Time: <= 30 minutes Discharge Instructions DIET: Follow Instructions for: Heart Healthy Diet Activities you can perform: Regular-No Restrictions Follow up Referrals: PCP Follow-up - 2 Weeks New Medications: Amlodipine (Amlodipine) 5 Mg Tab 5 MG PO DAILY for Blood Pressure Management, #30 TAB 1 Refill Kip Carrion MD Oct 17, 2017 09:45
== END 2017-10-12 12:18 | disposition home or self-care (01) ==
LOC: NEPC 22:06 → NEDA 10-11 00:40 → NEPFCDU 10-11 01:53 → HCIS 10-11 18:22
PROVIDERS: ADMIT Hospitalist; ATTEND Hospitalist
DX: R07.89 Other chest pain (principal); R51 Headache; I20.0 Unstable angina; R74.8 Abnormal levels of other serum enzymes; M79.602 Pain in left arm; R61 Generalized hyperhidrosis; I49.9 Cardiac arrhythmia, unspecified; I10 Essential (primary) hypertension; Z82.49 Family history of ischemic heart disease and other diseases of the circulatory system
CPT/HCPCS: 71010; 78452; 80048; 80061; 82550; 82552; 84484; 85025; 93005; 93017; 93458; 96360; 96361; 99152; 99285; A9502; C1769; C1893; G0378; J1644; J2250; J2785; J3010; J7030; Q9967

== ENCOUNTER 2017-10-20 15:58 | Emergency (ER) | payer SELFPAY ==
[~2017-10-20] VITALS: Ht 170.2 cm; Wt 95.5 kg
[~2017-10-20 15:58] MED LIST changes: -AMLO5 PO; +AMLO5TAB2 PO
[2017-10-20 15:59] VITALS: BP 168/92; PULSE 79; RESP 16; TEMP 99.3; O2SAT 98
--- NOTE | 2017-10-20 18:11 | PD ---
HPI Chief Complaint: Musculoskeletal Complaint Time Seen by Provider: 18:10 Travel History International Travel<30 days: No Contact w/Intl Traveler<30days: No Traveled to known affect area: No History of Present Illness HPI 41-year-old male presents to emergency department complaining of acute on chronic pain to left shoulder and neck since Monday. Patient states that he had a heart catheter on Monday and has developed an intense neck and shoulder pain that has worsened over the last couple days. Patient states that he has had use a urinal because whenever he gets a in position of comfort he does not want to move. Patient denies trauma or inciting events. Denies numbness or tingling of the extremities. States most of his pain is in the upper trapezius region and is very tender to palpation. Patient has been unable to use his shoulder or hands because of the excruciating pain in his shoulder and neck. Patient denies chest pain or shortness of breath. He has used aspirin with only mild relief. PFSH Past Medical History Heart Rhythm Problems: No Cardiac Catheterization: No Cardiovascular Problems: No High Cholesterol: No Congestive Heart Failure: No Diabetes: No Heparin Induced Thrombocytopen: No Hypertension: No Past Surgical History Coronary Artery Bypass Graft: No Social History Alcohol Use: Yes Tobacco Use: No Substance Use: No Allergies-Medications (Allergen,Severity, Reaction): Coded Allergies: No Known Allergies (Verified Adverse Reaction, Unknown, 10/20/17) Reported Meds & Prescriptions Reported Meds & Active Scripts Active Robaxin (Methocarbamol) 500 Mg Tab 500 Mg PO TID 5 Days Amlodipine (Amlodipine Besylate) 5 Mg Tab 5 Mg PO DAILY Review of Systems Except as stated in HPI: all other systems reviewed are Neg Physical Exam Narrative GENERAL: Well-nourished, well-developed patient. Patient holding neck and a fixed slightly canted right position. SKIN: Focused skin assessment warm/dry. HEAD: Normocephalic. EYES: No scleral icterus. No injection or drainage. NECK: Supple, trachea midline. No JVD or lymphadenopathy. Muscle spasms to the upper thoracic spine CARDIOVASCULAR: Regular rate and rhythm without murmurs, gallops, or rubs. RESPIRATORY: Breath sounds equal bilaterally. No accessory muscle use. GASTROINTESTINAL: Abdomen soft, non-tender, nondistended. MUSCULOSKELETAL: No cyanosis, or edema. Left shoulder-significant muscle spasms to the superior aspect of the trapezius. TTP of the musculature of the neck. Patient left in deformity range of motion exercises of the neck and shoulder because of the pain. BACK: Nontender without obvious deformity. No CVA tenderness. Muscle spasms to the upper thoracic spine Data Data Last Documented VS Vital Signs Date Time Temp Pulse Resp B/P (MAP) Pulse Ox O2 Delivery O2 Flow Rate FiO2 10/20/17 15:59 99.3 79 16 168/92 (117) 98 Room Air Orders Orders Orphenadrine Inj (Norflex Inj) (10/20/17 18:15) Ketorolac Inj (Toradol Inj) (10/20/17 18:15) Prednisone (Deltasone) (10/20/17 18:15) Acetamin-Hydrocod 325-5 Mg ([place] 5-325 (10/20/17 18:15) Ed Discharge Order (10/20/17 18:13) MDM Medical Decision Making Medical Screen Exam Complete: Yes Emergency Medical Condition: Yes Differential Diagnosis Torticollis, muscle spasms, lumbago Narrative Course 41-year-old male presents to emergency department complaining of acute on chronic pain to left shoulder and neck since Monday. Patient states that he had a heart catheter on Monday and has developed an intense neck and shoulder pain that has worsened over the last couple days. Patient states that he has had use a urinal because whenever he gets a in position of comfort he does not want to move. Patient denies trauma or inciting events. Denies numbness or tingling of the extremities. States most of his pain is in the upper trapezius region and is very tender to palpation. Patient has been unable to use his shoulder or hands because of the excruciating pain in his shoulder and neck. Patient denies chest pain or shortness of breath. He has used aspirin with only mild relief. Denies chronic medical issues except for a heart catheter that was completed last Monday. Vital signs stable. Physical exam findings consistent with torticollis with muscle spasms of the upper back. I examined the normal course of this issue. I explained that this may take some time to resolve. Advised to use the medications as prescribed. Strongly advised patient to perform range of motion exercises of the neck upper back and shoulders to reduce complication to include atrophy of the muscles or worsening muscle spasms. Hydrocodone, prednisone, Norflex at medicine the emergency department. Patient had a heart catheter last Monday. I'm hesitant to prescribe prednisone or ibuprofen on an outpatient basis. Patient requires muscle relaxants to reduce his symptoms. Robaxin for outpatient use. Assurely information given. Patient to follow up with primary care within 2-3 days. Return to the emergency department for worsening or persistent symptoms. Diagnosis Primary Impression: Torticollis Referrals: [facility] [place] Departure Forms: Tests/Procedures, Work Release Enter return to work date: Oct 24, 2017 Additional Instructions: Use ice or heat for symptom relief. Take all medication as prescribed If symptoms persist or worsen, return to the emergency department. Follow up with your primary care physician within 2 days. Scripts Methocarbamol (Robaxin) 500 Mg Tab 500 MG PO TID for Muscle Spasm for 5 Days, TAB 0 Refills Prov: Brissa Mott 10/20/17 Disposition: 01 DISCHARGE HOME Condition: Stable Brissa Mott Oct 20, 2017 18:11
[2017-10-20] MEDS ORDERED: ROBA500T PO (18:13)
[2017-10-20] MEDS ORDERED: predniSONE 20 MG TAB PO ONE (18:15)
[2017-10-20] MEDS ORDERED: ACETAMINOPHEN/HYDROcodone 325 MG/5 MG TAB PO ONE (18:15)
[2017-10-20] MEDS ORDERED: ORPHENADRINE INJ 60 MG/2 ML AMP IM ONE (18:15)
[2017-10-20] MEDS ORDERED: KETOROLAC TROMETHAMINE 60 MG/2 ML (IM) VIAL IM ONE (18:15)
== END 2017-10-20 18:57 | disposition home or self-care (01) ==
LOC: NEPK 15:58
DX: M43.6 Torticollis (principal); M25.512 Pain in left shoulder; G89.29 Other chronic pain; Z79.899 Other long term (current) drug therapy
CPT/HCPCS: 96372; 99284; J2360; J7512